=== PATIENT | female | born 1980 | race Two or more races ===

== ENCOUNTER 2022-01-25 07:28 | Emergency (ER) | payer OTHER ==
[2022-01-25 07:54] VITALS: TEMP 98.6; BMI 23.8
[2022-01-25] MEDS ORDERED: LACTATED RINGERS SOLUTION 1000 ML INFUS.BAG IV ONE (09:10)
[2022-01-25] MEDS ORDERED: ACETAMINOPHEN 1000 MG/100 ML BAG IVPB ONE (09:10)
[2022-01-25] MEDS ORDERED: ACETAMINOPHEN INJECTION 100 ML IVPB ONE (09:14)
[2022-01-25 09:47] LABS: BASO % 0.4 % (0-2.0); HEMOGLOBIN 13.9 GM/dL (10.7-15.3); LYMPH % 26.4 % (8-40); MCH 27.4 pg (25.7-33.7); MCHC 32.4 g/dl (32.0-36.0); MEAN CELL VOLUME 84.4 fl (80-96); MONO % 6.5 % (3.8-10.2); NEUT % 63.7 % (42.8-82.8); PLATELET COUNT 204 10^3/uL (134-434); RBC 5.09 M/mm3 (3.60-5.2); RDW 12.7 % (11.6-15.6); WHITE BLOOD COUNT 6.4 K/mm3 (4.0-10.0)
[2022-01-25 10:04] LABS: CHLORIDE 110 mmol/L (98-107); SODIUM 144 mmol/L (136-145)
[2022-01-25 10:06] LABS: CALCIUM 9.1 mg/dL (8.5-10.1)
[2022-01-25 10:07] LABS: ANION GAP 8 MMOL/L (8-16); BLOOD UREA NITROGEN 10.8 mg/dL (7-18); CO2 25 mmol/L (21-32); GLUCOSE,RANDOM 89 mg/dL (74-106)
[2022-01-25 10:10] LABS: CREATININE 0.8 mg/dL (0.55-1.3); SGOT/AST 10 U/L (15-37); SGPT/ALT 18 U/L (13-61)
[2022-01-25 10:11] LABS: BILIRUBIN,TOTAL 0.2 mg/dL (0.2-1); TOT PROT 7.5 g/dl (6.4-8.2)
[2022-01-25 10:13] LABS: ALK PHOS 56 U/L (45-117)
[2022-01-25] MEDS ORDERED: morphine CARPU-JECT 2 MG/1 ML DISP.SYRIN IVPUSH ONE (10:21)
[2022-01-25] MEDS ORDERED: morphine SULFATE 4 MG/ML VIAL ONE (11:22)
[2022-01-25 14:49] VITALS: BP 100/70; PULSE 74; RESP 20
[2022-01-25 15:14] LABS: LIPASE 114 U/L (73-393)
== END 2022-01-25 14:49 | disposition home or self-care (01) ==
LOC: JER 07:28
PROC: 3E033GC Introduction of Other Therapeutic Substance into Peripheral Vein, Percutaneous Approach (ICD-10-PCS; principal; 2022-01-25)
DX: R10.13 Epigastric pain (principal)
CPT/HCPCS: 0241U-QW; 36415; 74177-TC; 80053; 83690; 84484; 84702; 85025; 99285-25; Q9967